=== PATIENT | female | born 1980 | race Caucasian/White ===

== ENCOUNTER 2017-01-21 20:13 | Emergency (ER) | payer MEDICAID, OTHER ==
[~2017-01-21] VITALS: Ht 165.1 cm; Wt 75.7 kg
[2017-01-21 20:17] VITALS: BP 150/90
--- NOTE | 2017-01-21 20:26 | NUR ---
Pt taken to bed 7.
--- NOTE | 2017-01-21 20:37 | NUR ---
Patient being evaluated by Dr. Sams at bedside.
--- NOTE | 2017-01-21 20:37 | NUR ---
36/ F PRESENTS TO ER C/O CHEST PAIN X2 HOURS S/P EATING PIZZA AND DRINKING COKE. PMH HTN, NKA. PT STATES SHE WAS EATING DINNER WHEN SHE BEGAN TO START HAVING CHEST PAIN THAT RADIATES TO HER BACK AND LEFT SIDE. PT STATES SHE FEELS WEAK ON THE LEFT SIDE. PT DENIES VISION DISTURBANCES, FEVER, N/V/D. PT DENIES TAKING ANY MEDS AT HOME FOR PAIN, PT STATES SHE TAKES IRON SUPPLEMENTS AT HOME. PT STATES PAIN IS A HEAVINESS IN HER CHEST, 09/20, PT DENIES SOB, PT STATES SHE FEELS A FLUTTERING IN HER CHEST. ER MD NOTIFIED OF PT STATUS, PT IN BED, COMFORT NEEDS MET AT THIS TIME.
[2017-01-21 21:02] LABS: BASOPHILS # (AUTO) 0.4 K/uL (0.00-0.22); EOSINOPHILS # (AUTO) 0.1 K/uL (0-0.4); HEMATOCRIT 37.4 % (36-48); HEMOGLOBIN 12.5 g/dL (12.0-16.0); LYMPHOCYTES # (AUTO) 2.3 K/uL (2.5-16.5); MEAN CORPUSCULAR HEMOGLOBIN 28 pg (27-31); MEAN CORPUSCULAR HGB CONC 34 g/dL (33-37); MEAN CORPUSCULAR VOLUME 85 fL (80-94); MONOCYTES # (AUTO) 0.8 K/uL (0.8-1.0); NEUTROPHILS # (AUTO) 5.8 K/uL (1.8-7.7); PLATELET COUNT (AUTO) 259 K/uL (140-450); RED BLOOD CELL COUNT(AUTO) 4.42 MIL/uL (4.20-5.40); RED CELL DISTRIBUTION WIDTH 15.3 % (11.6-13.7); WHITE BLOOD COUNT (AUTO) 9.4 K/uL (4.8-10.8)
--- NOTE | 2017-01-21 21:15 | NUR ---
X-Ray at bedside.
[2017-01-21 21:17] LABS: ALBUMIN 3.6 g/dL (3.4-5.0); ANION GAP 7.8 (8-16); CARBON DIOXIDE 30.2 mmol/L (21-32); CREATININE 0.8 mg/dL (0.6-1.3); TOTAL BILIRUBIN 0.2 mg/dL (0.0-1.0)
[2017-01-21] MEDS ORDERED: POTASSIUM CHLORIDE 10 MEQ TABER PO ONE (22:10)
[2017-01-21 22:15] LABS: APPEARANCE,URINE CLEAR (CLEAR); BILIRUBIN,URINE NEGATIVE (NEGATIVE); BLOOD, URINE NEGATIVE (NEGATIVE); COLOR,URINE YELLOW (YELLOW); LEUKOCYTE ESTERASE ,URINE NEGATIVE (NEGATIVE); NITRITE, URINE NEGATIVE (NEGATIVE); UGLUCOSE NEGATIVE (NEGATIVE)
[2017-01-21 22:18] LABS: BARBITURATE, URINE NEG. ng/ml (NEG <=200); BENZODIAZEPINE, URINE NEG. ng/mL (NEG <=200); CANNABINOID, URINE NEG. ng/mL (NEG <=50); COCAINE, URINE NEG. ng/mL (NEG <=300); OPIATE, URINE NEG. ng/mL (NEG <=2000); PHENCYCLIDINE SCREEN,URINE NEG. ng/mL (NEG <=25)
[2017-01-21 22:26] LABS: RBC,URINE 0-5 (RARE) /HPF (0-5); WBC,URINE 0-5 (RARE) /HPF (0-5)
--- NOTE | 2017-01-21 23:29 | NUR ---
PT IN BED RESTING, PER DR GAONA WAITING TO D/C PENDING CT RESULTS.
--- NOTE | 2017-01-22 01:24 | NUR ---
PER DR GAONA PENDING D/C BECAUSE PENDING CT RESULTS.
[2017-01-22 02:33] VITALS: BP 125/80
--- NOTE | 2017-01-22 02:33 | NUR ---
Patient discharged with v/s stable. Written and verbal after care instructions given and explained. Patient verbalized understanding. Ambulatory with steady gait. All questions addressed prior to discharge. Advised to follow up with PMD.
== END 2017-01-22 02:33 | disposition home or self-care (01) ==
LOC: MED 20:13
DX: R07.89 Other chest pain (principal); E87.6 Hypokalemia; R20.0 Anesthesia of skin; F19.90 Other psychoactive substance use, unspecified, uncomplicated; I10 Essential (primary) hypertension
CPT/HCPCS: 36415; 70450; 71010; 80053; 80305; 81001; 81025; 83690; 84484; 85025; 85379; 93005; 99285; Q0092

== ENCOUNTER 2019-08-11 20:15 | Emergency (ER) | payer OTHER ==
[~2019-08-11] VITALS: Ht 165.1 cm; Wt 89.4 kg
[2019-08-11 20:19] VITALS: BP 171/97
--- NOTE | 2019-08-11 20:24 | NUR ---
PT AMBULATED TO BED 04 WITH STEADY GAIT.
--- NOTE | 2019-08-11 20:55 | NUR ---
PT COMING IN TODAY WITH C/O OF LOWER ABD PAIN AND BILATERAL FLANK PAIN X 2 DAYS. SHE ALSO HAS BLOOD IN HER URINE STARTING TODAY. SHE HAS BURNING WITH URINATION. AFEBRILE, NO N/V/D. BED IN LOWEST POSITION AND SIDERAIL UP X 1. NKA NO MED HX NO MEDS
--- NOTE | 2019-08-11 21:32 | NUR ---
Dr. Jacobo examining patient.
[2019-08-11 21:38] VITALS: BP 171/97
--- NOTE | 2019-08-11 21:39 | NUR ---
Patient discharged with v/s stable. Written and verbal after care instructions given and explained. Patient alert, oriented and verbalized understanding of instructions. Ambulatory with steady gait. All questions addressed prior to discharge. ID band removed. Patient advised to follow up with PMD. Rx of MACROBID AND PYRIDIUM given. Patient educated on indication of medication including possible reaction and side effects. Opportunity to ask questions provided and answered.
[2019-08-11 21:45] LABS: APPEARANCE,URINE BLOODY (CLEAR); BILIRUBIN,URINE NEGATIVE (NEGATIVE); BLOOD, URINE 3+ (NEGATIVE); COLOR,URINE RED (YELLOW); LEUKOCYTE ESTERASE ,URINE 1+ (NEGATIVE); NITRITE, URINE NEGATIVE (NEGATIVE); PH,URINE 7.5 (5.0-9.0); UGLUCOSE NEGATIVE (NEGATIVE)
[2019-08-11 21:52] LABS: RBC,URINE TOO NUMEROUS TO COUN /HPF (0-5)
[2019-08-11 21:53] LABS: TRICHOMONAS,URINE None Seen /HPF (None Seen); YEAST,URINE None Seen /HPF (None Seen)
== END 2019-08-11 21:39 | disposition home or self-care (01) ==
LOC: MED 20:15
DX: N39.0 Urinary tract infection, site not specified (principal); I10 Essential (primary) hypertension; Z98.890 Other specified postprocedural states
CPT/HCPCS: 81001; 81025; 87086; 87186; 99283

== ENCOUNTER 2021-03-23 08:20 | Emergency (ER) | payer OTHER ==
[~2021-03-23] VITALS: Ht 165.1 cm; Wt 83.0 kg
[2021-03-23 08:44] VITALS: BP 151/94
--- NOTE | 2021-03-23 08:44 | NUR ---
pt swabbed for novel at this time
--- NOTE | 2021-03-23 08:50 | NUR ---
41 y/o female, c/o chest pain (pressure), sob, sore throat, and cough for 4 days. pt states her son at home is sick with the same symptoms. pt states she was seen at the [facility] and was given z pack and feels worse. pt states pain is 9/10 at this time. pmh: htn nka med: zpack, does not take bp medications
== END 2021-03-23 11:12 | disposition home or self-care (01) ==
LOC: MED 08:20
DX: B34.9 Viral infection, unspecified (principal); Z20.822 Contact with and (suspected) exposure to COVID-19; R07.89 Other chest pain; I10 Essential (primary) hypertension
CPT/HCPCS: 71045; 93005; 99285; U0003

== ENCOUNTER 2021-11-15 07:21 | Emergency (ER) | payer OTHER ==
[~2021-11-15] VITALS: Ht 165.1 cm; Wt 82.1 kg
[2021-11-15 07:26] VITALS: BP 157/69
[2021-11-15] MEDS ORDERED: diphenhydrAMINE 50 MG/ML VIAL IVP ONE (07:50)
[2021-11-15] MEDS ORDERED: METOCLOPRAMIDE 10 MG/2 ML INJ VIAL IVP ONE (07:50)
[2021-11-15] MEDS ORDERED: DEXAMETHASONE 10 MG/ML VIAL IVP ONE (07:50)
[2021-11-15 08:11] LABS: BASOPHILS % (AUTO) 0.4 % (0.0-2.0); EOSINOPHILS % (AUTO) 0.5 % (0.0-4.0); HEMATOCRIT 37.9 % (36-48); HEMOGLOBIN 12.7 g/dL (12.0-16.0); LYMPHOCYTES # (AUTO) 2.1 K/uL (2.5-16.5); LYMPHOCYTES % (AUTO) 24.5 % (20.5-51.1); MEAN CORPUSCULAR HEMOGLOBIN 29 pg (27-31); MEAN CORPUSCULAR HGB CONC 33 g/dL (33-37); MEAN CORPUSCULAR VOLUME 85.4 fL (80-94); MONOCYTES # (AUTO) 0.6 K/uL (0.8-1.0); MONOCYTES % (AUTO) 7.2 % (1.7-9.3); NEUTROPHILS # (AUTO) 5.9 K/uL (1.8-7.7); NEUTROPHILS % (AUTO) 67.4 % (42.2-75.2); PLATELET COUNT (AUTO) 325 K/uL (140-450); RED BLOOD CELL COUNT(AUTO) 4.44 MIL/uL (4.20-5.40); RED CELL DISTRIBUTION WIDTH 14.5 % (11.6-13.7); WHITE BLOOD COUNT (AUTO) 8.8 K/uL (4.8-10.8)
[2021-11-15 08:23] LABS: ALBUMIN 3.6 g/dL (3.4-5.0); ANION GAP 13.8 (8-16); CARBON DIOXIDE 26.2 mmol/L (21-32); CREATININE 0.7 mg/dL (0.6-1.3); TOTAL BILIRUBIN 0.5 mg/dL (0.0-1.0)
[2021-11-15] MEDS ORDERED: ACET-9234 PO (09:14)
[2021-11-15 09:17] LABS: BARBITURATE, URINE NEGATIVE ng/ml (NEG <=200); BENZODIAZEPINE, URINE NEGATIVE ng/mL (NEG <=200); CANNABINOID, URINE NEGATIVE ng/mL (NEG <=50); COCAINE, URINE NEGATIVE ng/mL (NEG <=300); OPIATE, URINE NEGATIVE ng/mL (NEG <=2000); PHENCYCLIDINE SCREEN,URINE NEGATIVE ng/mL (NEG <=25)
[2021-11-15 09:29] VITALS: BP 157/69
== END 2021-11-15 09:29 | disposition home or self-care (01) ==
LOC: MED 07:21
DX: G43.109 Migraine with aura, not intractable, without status migrainosus (principal); I10 Essential (primary) hypertension; Z98.890 Other specified postprocedural states; Z79.899 Other long term (current) drug therapy
CPT/HCPCS: 36415; 70450; 80053; 80305; 81002; 81025; 83735; 84100; 85025; 96374; 96375; 99284; J1100; J1200; J2765

== ENCOUNTER 2022-02-11 03:00 | Emergency (ER) | payer OTHER ==
[~2022-02-11] VITALS: Ht 162.6 cm; Wt 79.8 kg
[~2022-02-11 03:00] MED LIST: ACET-9234 PO
[2022-02-11 03:12] VITALS: BP 125/75
--- NOTE | 2022-02-11 03:16 | NUR ---
pt to lobby
--- NOTE | 2022-02-11 04:13 | NUR ---
pt to XR via W/C
[2022-02-11] MEDS ORDERED: AZIT250T3 PO (04:28)
[2022-02-11] MEDS ORDERED: ALBU0.0912 IH (04:28)
[2022-02-11 04:48] VITALS: BP 125/75
--- NOTE | 2022-02-11 04:48 | NUR ---
Patient discharged. Written and verbal after care instructions given and explained. Patient alert, oriented and verbalized understanding of instructions. Ambulatory with steady gait. All questions addressed prior to discharge. ID band removed. Patient advised to follow up with PMD. Rx of albuterol sulfate and zithromax given. Patient educated on indication of medication including possible reaction and side effects. Opportunity to ask questions provided and answered.
== END 2022-02-11 04:48 | disposition home or self-care (01) ==
LOC: MED 03:00
DX: J18.9 Pneumonia, unspecified organism (principal); I10 Essential (primary) hypertension; Z79.899 Other long term (current) drug therapy
CPT/HCPCS: 71045; 99283